=== PATIENT | female | born 1990 | race Caucasian/White ===

== ENCOUNTER 2017-07-11 13:00 | Emergency (ER) | payer SELFPAY ==
[2017-07-11 13:15] VITALS: BP 105/68
[2017-07-11] MEDS ORDERED: PSEUDOEPHEDRINE HCL 30 MG TABLET PO ONE (14:14)
[2017-07-11] MEDS ORDERED: LORATADINE 10 MG TABLET PO ONE (14:14)
[2017-07-11] MEDS ORDERED: IBUPROFEN 800 MG TABLET PO ONE (14:14)
[2017-07-11] MEDS ORDERED: GUAIFENESIN 600 MG TABLET.SA PO ONE (14:14)
[2017-07-11] MEDS ORDERED: ONDANSETRON 4 MG TAB.RAPDIS PO ONE (14:18)
--- NOTE | 2017-07-11 14:28 | ER Document Report ---
ED Flu Like - General Chief Complaint: Flu Symptoms Stated Complaint: NAUSEA Time Seen by Provider: 07/11/17 14:14 Mode of Arrival: Ambulatory Information source: Patient Notes: 27-year-old female presented to ED for cough cold congestion runny nose nausea body aches fevers and chills since yesterday. She states her temperature yesterday was 102.3 afebrile at this time. Lungs are clear. Patient states that time she coughs up some mucus but she thinks is draining down the back of her nose. She states her last menstrual period was 3 days ago. TRAVEL OUTSIDE OF THE [place] IN LAST 30 DAYS: No - HPI Onset: Yesterday Timing/Duration: Intermittent Quality of pain: Achy Pain Level: 4 CO exposure: No Associated symptoms: Body/muscle aches, Chills, Fever, Headache, Nausea, Rhinnorhea, Sinus pain/drainage, Shortness of breath Similar symptoms previously: Yes Recently seen / treated by doctor: No - Related Data Allergies/Adverse Reactions: No Known Allergies Allergy (Verified 07/11/17 13:02) Past Medical History - General Information source: Patient - Social History Smoking Status: Current Every Day Smoker Cigarette use (# per day): Yes - Half pack per day Chew tobacco use (# tins/day): No Smoking Education Provided: Yes - 4 minutes Frequency of alcohol use: Occasional Drug Abuse: None Occupation: Call center Lives with: Spouse/Significant other Family History: Hypertension, Other - Cystic breast disease Patient has suicidal ideation: No Patient has homicidal ideation: No - Past Medical History Cardiac Medical History: Reports: None Pulmonary Medical History: Reports: None Denies: Hx Tuberculosis EENT Medical History: Reports: None Neurological Medical History: Reports: None Endocrine Medical History: Reports: None Renal/ Medical History: Reports: None Malignancy Medical History: Reports: None GI Medical History: Reports: None Musculoskeltal Medical History: Reports None Skin Medical History: Reports None Psychiatric Medical History: Reports: None Traumatic Medical History: Reports: None Infectious Medical History: Reports: None Surgical Hx: Negative Past Surgical History: Reports: None - Immunizations Immunizations up to date: Yes Hx Diphtheria, Pertussis, Tetanus Vaccination: Yes Review of Systems - Review of Systems Constitutional: Chills, Fever, Recent illness EENT: No symptoms reported, Nose congestion, Nose discharge, Sinus pressure, Sinus discharge Cardiovascular: No symptoms reported Respiratory: Cough, Sputum - There Gastrointestinal: Nausea. denies: Vomiting Genitourinary: No symptoms reported Female Genitourinary: No symptoms reported Musculoskeletal: No symptoms reported Skin: No symptoms reported Hematologic/Lymphatic: No symptoms reported Neurological/Psychological: No symptoms reported -: Yes All other systems reviewed and negative Physical Exam - Vital signs Vitals: Temp Pulse Resp BP Pulse Ox 99.3 F 85 18 105/68 99 07/11/17 13:14 07/11/17 13:14 07/11/17 13:14 07/11/17 13:14 07/11/17 13:14 Interpretation: Normal - General General appearance: Appears well, Alert - HEENT Head: Normocephalic, Atraumatic Eyes: Normal Pupils: PERRL Ears: Normal External canal: Normal Tympanic membrane: Normal Sinus: Normal Nasal: Purulent discharge, Swelling Mouth/Lips: Normal Pharynx: Post nasal drainage Neck: Normal - Respiratory Respiratory status: No respiratory distress Chest status: Nontender Breath sounds: Normal Chest palpation: Normal - Cardiovascular Rhythm: Regular Heart sounds: Normal auscultation Murmur: No - Abdominal Inspection: Normal Distension: No distension Bowel sounds: Normal Tenderness: Nontender Organomegaly: No organomegaly - Back Back: Normal, Nontender - Extremities General upper extremity: Normal inspection, Nontender, Normal color, Normal ROM , Normal temperature General lower extremity: Normal inspection, Nontender, Normal color, Normal ROM , Normal temperature, Normal weight bearing. No: David's sign - Neurological Neuro grossly intact: Yes Cognition: Normal Orientation: AAOx4 [place] Coma Scale Eye Opening: Spontaneous [place] Coma Scale Verbal: Oriented [place] Coma Scale Motor: Obeys Commands [place] Coma Scale Total: 15 Speech: Normal Motor strength normal: LUE, RUE, LLE, RLE Sensory: Normal - Psychological Associated symptoms: Normal affect, Normal mood - Skin Skin Temperature: Warm Skin Moisture: Dry Skin Color: Normal Course - Re-evaluation Re-evalutation: 07/11/17 14:18 Influenza test will be run patient will be treated with Claritin and Sudafed Mucinex and Zofran as well as ibuprofen for her cough and cold and achy body and nausea. - Vital Signs Vital signs: Temp Pulse Resp BP Pulse Ox 99.3 F 85 18 105/68 99 07/11/17 13:14 07/11/17 13:14 07/11/17 13:14 07/11/17 13:14 07/11/17 13:14 Discharge - Discharge Clinical Impression: URI (upper respiratory infection) Qualifiers: URI type: unspecified URI Qualified Code(s): J06.9 - Acute upper respiratory infection, unspecified Condition: Stable Disposition: HOME, SELF-CARE Instructions: Family Physicians / Practices Additional Instructions: UPPER RESPIRATORY ILLNESS: You have a viral infection of the respiratory passages -- a "cold." This common infection causes nasal congestion, drainage, and often sore throat and cough. It is highly contagious. The disease usually lasts about 10 to 14 days. There is no "cure" for the viral infection -- it must run its course. If there is a complication, such as bacterial infection in the nose, sinuses, middle ear, or bronchial tubes, antibiotics may be required. The antibiotics won't affect the virus. Drink plenty of fluids. A humidifier may help. An expectorant medication or decongestant may make you more comfortable. Use acetaminophen or ibuprofen for fever or aches. See the doctor if fever persists over two days, if there is any significant worsening of your symptoms, or if you simply fail to improve as expected. You will treated with Claritin and Sudafed Mucinex and ibuprofen for your cough cold congestion fever and chills. These are all kska-woo-cvlnube medications. And you can get them from the local pharmacist. You also treated with Zofran for your nausea. I can write you a prescription for this. DECONGESTANT MEDICATION: A decongestant medicine has been suggested. Often this medicine is combined in the same tablet with an antihistamine or expectorant. This type of medicine is helpful in treating a bad cold or sinus condition, as well as in treatment of the nasal congestion of hay fever. It is not of much benefit for lung infections. Decongestant medicines are related to stimulants. They can cause an increase in blood pressure and heart rate. Persons with heart disease and high blood pressure should not take decongestants without discussing this with the physician. If you develop palpitations, chest pain, headache, or tremors, stop the medicine and consult your physician. COUGH-SUPPRESSANT & EXPECTORANT MEDICATION: You are to use a cough medication as needed for relief of symptoms. This medicine is a combination of an expectorant (to make the mucous thinner and more easily "coughed up") and a cough suppressant (to reduce the frequency of coughing). The cough-suppressant medicine is related to narcotics. You may experience mild nausea and sleepiness. Some patients who are very sensitive to narcotics may have stomach pain from this medicine. Taking the medicine with food reduces these side effects. Do not drive or work with machinery until you know how this medicine affects you. The expectorant should have no side effects. Iodine-containing expectorants (such as organidin) should not be taken by persons with active thyroid disease unless approved by your doctor. Call the doctor if you develop shortness of breath, hives, rash, itching, lightheadedness, or severe nausea and vomiting. USE OF ACETAMINOPHEN (Tylenol): Acetaminophen may be taken for pain relief or fever control. It's much safer than aspirin, offering a wider range of "safe" dosages. It is safe during . Some brand names are Tylenol, Panadol, Datril, Anacin 3, Tempra, and Liquiprin. Acetaminophen can be repeated every four hours. The following are maximum recommended dosages: >89 pounds or adults 650 mg to 900 mg Acetaminophen can be repeated every four hours. Maximum dose not to exceed 4000 mg a day. SMOKING: If you smoke, you should stop smoking. The tar and chemicals in cigarette smoke are harmful. Smoking has been shown to cause: emphysema chronic bronchitis lung cancer mouth and throat cancer stomach and pancreas cancer premature aging defects In addition, smoking increases ear and lung infections in children of smokers. FOLLOW-UP CARE: If you have been referred to a physician for follow-up care, call the physician s office for an appointment as you were instructed or within the next two days. If you experience worsening or a significant change in your symptoms, notify the physician immediately or return to the Emergency Department at any time for re-evaluation. Prescriptions: Ondansetron [Zofran Odt 4 mg Tablet] 1 tab PO Q6H #15 tab.rapdis Forms: Smoking Cessation Education, Return to Work
[2017-07-11 15:03] LABS: A TYPE INFLUENZA AG NEGATIVE (NEGATIVE); B INFLUENZA AG NEGATIVE (NEGATIVE)
== END 2017-07-11 15:22 | disposition home or self-care (01) ==
LOC: ER 13:00
DX: J06.9 Acute upper respiratory infection, unspecified (principal); R11.0 Nausea; R05 Cough; R09.81 Nasal congestion; R09.89 Other specified symptoms and signs involving the circulatory and respiratory systems; M79.1 Myalgia; R50.9 Fever, unspecified; F17.210 Nicotine dependence, cigarettes, uncomplicated
CPT/HCPCS: 99283; 87804; S0119

== ENCOUNTER 2017-11-01 22:35 | Emergency (ER) | payer SELFPAY ==
[2017-11-02 00:57] LABS: APPEARANCE,URINE CLEAR; BILIRUBIN,URINE NEGATIVE (NEGATIVE); GLUCOSE, URINE 50 mg/dL (NEGATIVE); KETONES,URINE TRACE mg/dL (NEGATIVE); LEUKOCYTE ESTERASE,URINE NEGATIVE (NEGATIVE); NITRITE,URINE POSITIVE (NEGATIVE); PROTEIN,URINE 100 mg/dL (NEGATIVE); URINE SPECIFIC GRAVITY 1.026
[2017-11-02 00:58] LABS: COLOR,URINE AMBER
[2017-11-02] MEDS ORDERED: CEFTRIAXONE INJ 1000 MG VIAL IV ONE (01:17)
[2017-11-02] MEDS ORDERED: NORMAL SALINE 1000 ML 1,000 ML IV ONE (01:17)
[2017-11-02] MEDS ORDERED: KETOROLAC TROMETHAMINE INJ/PF 30 MG/1 ML SDV IV ONE (01:17)
--- NOTE | 2017-11-02 01:23 | ER Document Report ---
ED General - General Chief Complaint: Abdominal Pain Stated Complaint: ABDOMINAL PAIN Time Seen by Provider: 11/02/17 01:10 Notes: Patient is a pleasant 27-year-old female who presents with complaint of pressure over her bladder whenever she urinates. She also has pain in the suprapubic region as well as pain into her lower back. She has had chills and felt like she had fevers at home.'s been ongoing for several days. She has been taking ggpy-vqi-glujvul AZO, but this is not significantly helped her symptoms. She has some nausea but no vomiting. She is not currently sexually active. She said that she saw her doctor 2 weeks ago and got her control shot and was tested for all STDs and everything came back negative. Denies any abnormal vaginal bleeding or discharge. Complains full bit of sore throat which started just a few days ago. Some congestion. No difficulty breathing. TRAVEL OUTSIDE OF THE [place] IN LAST 30 DAYS: No - Related Data Allergies/Adverse Reactions: No Known Allergies Allergy (Verified 07/11/17 13:02) Past Medical History - Social History Smoking Status: Unknown if Ever Smoked Frequency of alcohol use: None Drug Abuse: None Family History: Hypertension, Other - Cystic breast disease Pulmonary Medical History: Denies: Hx Tuberculosis Renal/ Medical History: Denies: Hx Peritoneal Dialysis - Immunizations Immunizations up to date: Yes Hx Diphtheria, Pertussis, Tetanus Vaccination: Yes Review of Systems - Review of Systems Notes: My Normal Review Basic REVIEW OF SYSTEMS: CONSTITUTIONAL : Fevers and chills EENT: Sore Throat RESPIRATORY: Denies cough, cold, or chest congestion. Denies shortness of breath, difficulty breathing, or wheezing. GASTROINTESTINAL: Suprapubic abdominal pain. Some nausea. GENITOURINARY: Pressure with urination. FEMALE GENITOURINARY: Denies vaginal bleeding, abnormal or irregular periods. MUSCULOSKELETAL: Low back pain SKIN: Denies rash or skin lesions. NEUROLOGICAL: Denies altered mental status or loss of consciousness. Denies headache. Denies weakness or paralysis or loss of use of either side. Denies problems with gait or speech. Denies sensory or motor loss. ALL OTHER SYSTEMS REVIEWED AND NEGATIVE. Physical Exam - Vital signs Vitals: Temp Pulse Resp BP Pulse Ox 100.1 F 105 H 16 119/73 99 11/01/17 22:39 11/01/17 22:39 11/01/17 22:39 11/01/17 22:39 11/01/17 22:39 - Notes Notes: General Appearance: Well nourished, alert, cooperative, no acute distress, no obvious discomfort. Vitals: reviewed, See vital signs table. Head: no swelling or tenderness to the head Eyes: PERRL, EOMI, Conjuctiva clear Mouth: No decreasd moisture Throat: No tonsillar inflammation, No airway obstruction, No lymphadenopathy Neck: Supple, no neck tenderness, No swelling Lungs: No wheezing, No rales, No rhonci, No accessory muscle use, good air exchange bilaterally. Heart: Mildly tachycardic rate, Regular rythm, No murmur, no rub Abdomen: Normal BS, soft, No rigidity, Suprapubic abdominal tenderness to palpation, No guarding, no rebound, Extremities: strength 5/5 in all extremities, good pulses in all extremities, no swelling or tenderness in the extremities, no edema. Skin: warm, dry, appropriate color, no rash Neuro: speech clear, oriented x 3, normal affect, responds appropriately to questions. Course - Re-evaluation Re-evalutation: 11/02/17 04:24 Patient appears to be feeling some improved after the IV fluids. I suspect she has a kidney infection based on the fact that she has positive void sign as well as urinary frequency as well as fever and positive nitrites in her urine. I sent her urine for culture. I give her a dose of Rocephin as well as a liter of IV fluids. I informed her that she should return to ER if she is not feeling better after 24-36 hours, she is having worsening recurrent fevers, or she feels that she is worsening in any way. Patient agrees with plan will be discharged home. I do not suspect kidney stones the patient does not have severe significant pain, she is not vomiting, and her urine only has a few red blood cells in it. Dictation of this chart was performed using voice recognition software; therefore, there may be some unintended grammatical errors. - Vital Signs Vital signs: Temp Pulse Resp BP Pulse Ox 100.1 F 105 H 16 119/73 99 11/01/17 22:39 11/01/17 22:39 11/01/17 22:39 11/01/17 22:39 11/01/17 22:39 - Laboratory Result Diagrams: 11/02/17 02:45 Laboratory results interpreted by me: 11/02/17 11/02/17 00:42 02:45 Chloride 110 H Carbon Dioxide 20 L Glucose 120 H Urine Protein 100 H Urine Glucose (UA) 50 H Urine Ketones TRACE H Urine Nitrite POSITIVE H Urine Urobilinogen 4.0 H Discharge - Discharge Clinical Impression: Urinary tract infection Qualifiers: Urinary tract infection type: site unspecified Hematuria presence: without hematuria Qualified Code(s): N39.0 - Urinary tract infection, site not specified Condition: Good Disposition: HOME, SELF-CARE Additional Instructions: Please take the antibiotics as prescribed. you should start feeling improved in the next 24 hours. Please return to the ER immediately if you are having recurrent fevers, not feeling any improvement after 36 hours, or if you are feeling worse in any way. Prescriptions: Cephalexin Monohydrate [Keflex 500 mg Capsule] 500 mg PO Q6H 7 Days capsule Forms: Return to Work
[2017-11-02 03:07] LABS: ANION GAP 10 (5-19); BLOOD UREA NITROGEN 13 mg/dL (7-20); CARBON DIOXIDE 20 mmol/L (22-30); CHLORIDE 110 mmol/L (98-107); GLUCOSE 120 mg/dL (75-110); SODIUM 140.3 mmol/L (137-145)
[2017-11-02 04:43] VITALS: BP 99/47
== END 2017-11-02 04:43 | disposition home or self-care (01) ==
LOC: ER 22:35
DX: N39.0 Urinary tract infection, site not specified (principal); R10.30 Lower abdominal pain, unspecified; M54.5 Low back pain; R11.0 Nausea
CPT/HCPCS: 99284; 96375; 96365; 36415; 87086; 81025; 80048; 81001; J1885; J0696; J7030